=== PATIENT | female | born 1990 | race Caucasian/White ===

== ENCOUNTER 2016-07-03 11:34 | Emergency (ER) | payer BC ==
[2016-07-03] MEDS ORDERED: NS 0.9% 1000 ML* 2,000 ML IV ONE (13:28)
[2016-07-03 14:27] LABS: Albumin 3.6 g/dL (3.2-5.2); C Reactive Protein 23.67 mg/L (< 5.00); Calcium 9.2 mg/dL (8.6-10.3); EGFR African American 159.7 (>60); EGFR Non-African American 124.2 (>60); Globulin 3.1 g/dL (2-4); Potassium 3.7 mmol/L (3.5-5.0); Total Bilirubin 0.3 mg/dL (0.2-1.0); Total Protein 6.7 g/dL (6.4-8.9)
[2016-07-03 14:36] LABS: Urine Bacteria 1+ (Absent); Urine Bilirubin Negative (Negative); Urine Glucose Negative (Negative); Urine Nitrite Negative (Negative)
--- NOTE | 2016-07-03 15:15 | ED ---
I, Oh,Antonia, scribed for Denver Aguilera MD on 07/03/16 at 1320 . Abdominal Pain/Female - HPI Summary HPI Summary: This 26 y/o female presents to intermittent, diffuse abd pain and diarrhea since a week ago. Pt states that abd pain does not occur at daytime, but occurs at night and makes the sleep difficult "I am waking up every 2 hours". Pt initially dismissed abd pain as stomach bug, but decided to visit ED today when it became consistent after a week. Pt denies noting any blood in stool, but reports watery, dark stool. Tums did little to alleviate the pain. Negative fever, chills, or vaginal discharge. Positive n/v x1 a week ago. Pt denies any hx of colitis. FHx is positive for Crohn's to mother. She is currently 22 weeks . LMP on 02/02/2016. Pt is currently on fluoxetine. She reports "probiotic and clense" 2 months ago. - History of Current Complaint Chief Complaint: EDKarunauseaVomitDiarrh Stated Complaint: 22 WEEKS PREG, DIARRHEA NAUSEA Time Seen by Provider: 07/03/16 12:52 Hx Obtained From: Patient, Medical Records Hx Last Menstrual Period: 02/02/16 ?: No Onset/Duration: Resolved Timing: Hours Pain Intensity: 2 Pain Scale Used: 0-10 Numeric Location: Diffuse Radiates: No Character: Dull Aggravating Factor(s): Nothing Alleviating Factor(s): Spontaneous Resolution Associated Signs and Symptoms: Positive: Nausea, Vomiting, Diarrhea. Negative: Fever Allergies/Adverse Reactions: Allergies Allergy/AdvReac Type Severity Reaction Status Date / Time No Known Allergies Allergy Verified 07/03/16 11:35 PMH/Surg Hx/FS Hx/Imm Hx Endocrine/Hematology History: Denies: Hx Diabetes Cardiovascular History: Denies: Hx Congestive Heart Failure, Hx Hypertension History: Denies: Hx Renal Disease - Surgical History Surgery Procedure, Year, and Place: r acl reconstruction Infectious Disease History: No Infectious Disease History: Denies: Traveled Outside the [place] in Last 30 Days - Family History Known Family History: Positive: Respiratory Disease, Other - Crohn's to mother - Social History Alcohol Use: None Hx Substance Use: No Substance Use Type: Reports: None Hx Tobacco Use: Yes Smoking Status (MU): Former Smoker Type: Cigarettes Amount Used/How Often: 7 CIGARETTES Length of Time of Smoking/Using Tobacco: 1 YEARS Have You Smoked in the Last Year: Yes Review of Systems Negative: Fever Positive: Abdominal Pain - diffuse, intermittent, Vomiting, Diarrhea, Nausea Negative: dysuria, discharge Negative: Anxious, Depressed All Other Systems Reviewed And Are Negative: Yes Physical Exam Triage Information Reviewed: Yes Vital Signs On Initial Exam: Initial Vitals Temp Pulse Resp BP Pulse Ox 97.8 F 96 18 146/74 100 07/03/16 11:36 07/03/16 11:36 07/03/16 11:36 07/03/16 11:36 07/03/16 11:36 Vital Signs Reviewed: Yes Appearance: Positive: Well-Appearing, No Pain Distress Skin: Positive: Warm, Skin Color Reflects Adequate Perfusion, Dry Head/Face: Positive: Normal Head/Face Inspection Eyes: Positive: EOMI, ASTRID Neck: Positive: Supple, Nontender Respiratory/Lung Sounds: Positive: Clear to Auscultation, Breath Sounds Present Cardiovascular: Positive: RRR, Pulses are Symmetrical in both Upper and Lower Extremities Abdomen Description: Positive: Nontender, Soft Musculoskeletal: Positive: Strength/ROM Intact Neurological: Positive: Sensory/Motor Intact, Alert, Oriented to Person Place, Time Psychiatric: Positive: Affect/Mood Appropriate AVPU Assessment: Alert Diagnostics - Vital Signs Vital Signs Temp Pulse Resp BP Pulse Ox 07/03/16 11:36 97.8 F 96 18 146/74 100 - Laboratory Lab Results: Lab Results 07/03/16 07/03/16 07/03/16 Range/Units 13:55 13:55 13:55 INR (Anticoag Therapy) 0.86 L (0.89-1.11) APTT 27.1 (26.0-36.3) seconds Sodium 135 (133-145) mmol/L Potassium 3.7 (3.5-5.0) mmol/L Chloride 105 (101-111) mmol/L Carbon Dioxide 24 (22-32) mmol/L Anion Gap 6 (2-11) mmol/L BUN 13 (6-24) mg/dL Creatinine 0.59 (0.51-0.95) mg/dL Est GFR ( Amer) 159.7 (>60) Est GFR (Non-Af Amer) 124.2 (>60) BUN/Creatinine Ratio 22.0 H (8-20) Glucose 68 L (70-100) mg/dL Lactic Acid 0.8 (0.5-2.0) mmol/L Calcium 9.2 (8.6-10.3) mg/dL Total Bilirubin 0.30 (0.2-1.0) mg/dL AST 13 (13-39) U/L ALT 16 (7-52) U/L Alkaline Phosphatase 52 (34-104) U/L C-Reactive Protein 23.67 H (< 5.00) mg/L Total Protein 6.7 (6.4-8.9) g/dL Albumin 3.6 (3.2-5.2) g/dL Globulin 3.1 (2-4) g/dL Albumin/Globulin Ratio 1.2 (1-3) Lipase 54 (11.0-82.0) U/L Urine Color Urine Appearance Urine pH (5-9) Ur Specific Alexis (1.010-1.030) Urine Protein (Negative) Urine Ketones (Negative) Urine Blood (Negative) Urine Nitrate (Negative) Urine Bilirubin (Negative) Urine Urobilinogen (Negative) Ur Leukocyte Esterase (Negative) Urine WBC (Auto) (Absent) Urine RBC (Auto) (Absent) Ur Squamous Epith Cells (Absent) Urine Bacteria (Absent) Urine Glucose (Negative) 07/03/16 Range/Units 13:55 INR (Anticoag Therapy) (0.89-1.11) APTT (26.0-36.3) seconds Sodium (133-145) mmol/L Potassium (3.5-5.0) mmol/L Chloride (101-111) mmol/L Carbon Dioxide (22-32) mmol/L Anion Gap (2-11) mmol/L BUN (6-24) mg/dL Creatinine (0.51-0.95) mg/dL Est GFR ( Amer) (>60) Est GFR (Non-Af Amer) (>60) BUN/Creatinine Ratio (8-20) Glucose (70-100) mg/dL Lactic Acid (0.5-2.0) mmol/L Calcium (8.6-10.3) mg/dL Total Bilirubin (0.2-1.0) mg/dL AST (13-39) U/L ALT (7-52) U/L Alkaline Phosphatase (34-104) U/L C-Reactive Protein (< 5.00) mg/L Total Protein (6.4-8.9) g/dL Albumin (3.2-5.2) g/dL Globulin (2-4) g/dL Albumin/Globulin Ratio (1-3) Lipase (11.0-82.0) U/L Urine Color Yellow Urine Appearance Cloudy Urine pH 5.0 (5-9) Ur Specific Alexis 1.020 (1.010-1.030) Urine Protein Negative (Negative) Urine Ketones Negative (Negative) Urine Blood Negative (Negative) Urine Nitrate Negative (Negative) Urine Bilirubin Negative (Negative) Urine Urobilinogen Negative (Negative) Ur Leukocyte Esterase Trace H (Negative) Urine WBC (Auto) Trace(0-5/hpf) (Absent) Urine RBC (Auto) Trace(0-2/hpf) (Absent) Ur Squamous Epith Cells Present H (Absent) Urine Bacteria 1+ H (Absent) Urine Glucose Negative (Negative) Result Diagrams: 07/03/16 13:55 Lab Statement: Any lab studies that have been ordered have been reviewed, and results considered in the medical decision making process. Re-Evaluation - Re-Evaluation First Eval Re-Evaluation Time: 15:05 Comment: MD in room to update pt on bloodwork and UA results. Stool sample has not been obtained, and pt is currently requesting discharge. Plan of care involving discharge with stool sample kit to go and outpatient follow up with primary care provider. Abdominal Pain Fem Course/Dx - Course Course Of Treatment: WELL IN ED. UNABLE TO PROVIDE A STOOL SAMPLE IN ED. HOME WITH STOOL SAMPLE KIT TO F/U WITH OBGYN. RETURN IF WORSE. DISCHARGE HOME STABLE. - Diagnoses Provider Diagnoses: Diarrhea, Abdominal pain Discharge - Discharge Plan Condition: Stable Disposition: HOME Patient Education Materials: Acute Diarrhea (ED), Abdominal Pain (ED) Referrals: Non Staff,Doctor [Primary Care Provider] - Additional Instructions: FOLLOW UP WITH YOUR DOCTOR. BRING THE STOOL SAMPLES TO YOUR DOCTOR. RETURN TO THE EMERGENCY DEPARTMENT FOR ANY WORSENING OF YOUR CONDITION OR QUESTIONS OR CONCERNS. The documentation as recorded by the Danilo escobedo Soohyun accurately reflects the service I personally performed and the decisions made by me, Denver Aguilera MD.
[2016-07-03 15:17] VITALS: BP 133/73
[2016-07-03 15:35] LABS: Hemoglobin 12.4 g/dl (12.0-16.0); Mean Platelet Volume 9 um3 (7.4-10.4)
[2016-07-03 15:41] LABS: Hematocrit 37 % (35-47); Mean Corpuscular HGB Conc 33 g/dl (31-36); Mean Corpuscular Hemoglobin 31 pg (27-31); Mean Corpuscular Volume 92 fL (80-97); Red Blood Count 4.06 10^6/ul (4.0-5.4); Red Cell Distribution Width 13 % (10.5-15); White Blood Count 13.3 10^3/ul (3.5-10.8)
--- NOTE | 2016-07-06 08:51 | ED ---
Progress - Progress Note Progress Note: Pt's stool cx reveals (+) klebsiella oxytoca and lactoferrin - her note reports a 2 week h/o worsening diarrhea. Note does not indicate if pt has been on or is currently taking anbx but does note she did a "probiotic and cleanse" 2 months ago. Also, Mom w/ h/o Crohn's dz. Spoke w/ Dr. Piedra who recommends: 1) stopping anbx if she is taking them currently 2) if no anbx and diarrhea persists, may follow-up with him or her PCP to further investigate other causes as the body is colonized w/ kleb. oxytoca unless the yu is disturbed. LMTC. Will also mail letter if no call back by end of the day. екатерина Bautista aware. Re-Evaluation - Re-Evaluation First Eval Re-Evaluation Time: 15:05 Comment: in room to update pt on bloodwork and UA results. Stool sample has not been obtained, and pt is currently requesting discharge. Plan of care involving discharge with stool sample kit to go and outpatient follow up with primary care provider. Course/Dx - Course Course Of Treatment: WELL IN ED. UNABLE TO PROVIDE A STOOL SAMPLE IN ED. HOME WITH STOOL SAMPLE KIT TO F/U WITH OBGYN. RETURN IF WORSE. DISCHARGE HOME STABLE. - Diagnoses Provider Diagnoses: Diarrhea, Abdominal pain
== END 2016-07-03 15:18 | disposition home or self-care (01) ==
LOC: ED 11:34
DX: O26.892 Other specified pregnancy related conditions, second trimester (principal); Z3A.22 22 weeks gestation of pregnancy; R10.9 Unspecified abdominal pain; O99.332 Smoking (tobacco) complicating pregnancy, second trimester
CPT/HCPCS: 36415; 80053; 81003; 81015; 82272; 83605; 83630; 83690; 85025; 85610; 85730; 86140; 87045; 87046; 87077; 87086; 87328; 87329; 87493; 87899; 96360; 99283

== ENCOUNTER 2016-11-03 06:54 | Inpatient (IN) | payer BC ==
[2016-11-03] MEDS ORDERED: Oxytocin in LR* 20 UNITS/1,000 ML BAG IVPB SCH ×3 (08:45→17:50)
[2016-11-03 09:39] LABS: Hematocrit 36 % (35-47); Mean Corpuscular HGB Conc 34 g/dl (31-36); Mean Corpuscular Hemoglobin 31 pg (27-31); Mean Corpuscular Volume 91 fL (80-97); Mean Platelet Volume 8 um3 (7.4-10.4); Red Blood Count 3.94 10^6/ul (4.0-5.4); Red Cell Distribution Width 14 % (10.5-15); White Blood Count 11.2 10^3/ul (3.5-10.8)
[2016-11-03] MEDS ORDERED: Acetaminophen TAB* 325 MG PO PRN (13:00)
[2016-11-03] MEDS ORDERED: OBEPIDURAL* 250 ML ONE (13:34)
[2016-11-03] MEDS ORDERED: Famotidine TAB* 20 MG PO PRN (14:28)
[2016-11-03] MEDS ORDERED: Sodium Citrate/Citric Acid* 15 ML UDC PO PRN (14:28)
[2016-11-03] MEDS ORDERED: Phenylephrine IV* 40 MCG/ML 10 ML SYRINGE IV PUSH PRN (14:28)
[2016-11-03] MEDS ORDERED: OBEPIDURAL* 250 ML EPIDURAL SCH (15:00)
[2016-11-03] MEDS ORDERED: Glycerin ADULT SUPP PR PRN (16:32)
[2016-11-03] MEDS ORDERED: oxyCODONE/Acetamin 5/325 MG* TAB PO PRN (16:32)
[2016-11-03] MEDS ORDERED: Dibucaine 1% 28.35 GM TUBE PR PRN (16:32)
[2016-11-03] MEDS ORDERED: Witch Hazel PAD* JAR TOPICAL PRN (16:32)
[2016-11-03] MEDS ORDERED: Misoprostol TAB* 200 MCG PR ONE (17:18)
[2016-11-03] MEDS: Docusate CAP* 100 MG PO SCH (19:24)
[2016-11-03] MEDS: Ibuprofen TAB* 600 MG PO PRN (19:24)
[2016-11-04] MEDS: Ibuprofen TAB* 600 MG PO PRN ×3 (04:59→16:34)
[2016-11-04 06:48] LABS: Hematocrit 31 % (35-47); Hemoglobin 10.2 g/dl (12.0-16.0); Mean Corpuscular HGB Conc 33 g/dl (31-36); Mean Corpuscular Hemoglobin 30 pg (27-31); Mean Corpuscular Volume 91 fL (80-97); Mean Platelet Volume 8 um3 (7.4-10.4); Red Blood Count 3.34 10^6/ul (4.0-5.4); Red Cell Distribution Width 13 % (10.5-15); White Blood Count 13.2 10^3/ul (3.5-10.8)
[2016-11-04] MEDS: Simethicone CHEW TAB* 80 MG PO SCH (08:03)
[2016-11-04] MEDS ORDERED: Ferrous Gluconate TAB* 324 MG TAB PO SCH (09:00)
[2016-11-04] MEDS ORDERED: FLUoxetine CAP* 20 MG PO SCH (09:00)
[2016-11-04] MEDS ORDERED: Tetan/Diph/Pertus SYR(Tdap)* 0.5 ML SYR(BOOSTRIX) use SYR IM ONE (09:00)
[2016-11-04] MEDS: Docusate CAP* 100 MG PO SCH ×3 (09:07→21:35)
[2016-11-05] MEDS: Ibuprofen TAB* 600 MG PO PRN ×2 (01:05→11:54)
[2016-11-05 04:34] VITALS: BP 150/76
[2016-11-05] MEDS: Docusate CAP* 100 MG PO SCH (09:02)
== END 2016-11-05 12:36 | disposition home or self-care (01) | DRG 541 ==
LOC: MCHOBOUT 06:54 → MCHOB 07:53 → UNDOADMIN 07:53 → MCHOB 07:59
PROVIDERS: ADMIT Midwife; ATTEND Midwife
PROC: 10907ZC Drainage of Amniotic Fluid, Therapeutic from Products of Conception, Via Natural or Artificial Opening (ICD-10-PCS; principal; 2016-11-03)
PROC: 3E033VJ Introduction of Other Hormone into Peripheral Vein, Percutaneous Approach (ICD-10-PCS; 2016-11-03)
PROC: 10E0XZZ Delivery of Products of Conception, External Approach (ICD-10-PCS; 2016-11-03)
PROC: 4A1HXCZ Monitoring of Products of Conception, Cardiac Rate, External Approach (ICD-10-PCS; 2016-11-03)
PROC: 0KQM0ZZ Repair Perineum Muscle, Open Approach (ICD-10-PCS; 2016-11-03)
PROC: 10D17ZZ Extraction of Products of Conception, Retained, Via Natural or Artificial Opening (ICD-10-PCS; 2016-11-03)
DX: O99.344 Other mental disorders complicating childbirth (principal); O98.52 Other viral diseases complicating childbirth; O72.0 Third-stage hemorrhage; O99.824 Streptococcus B carrier state complicating childbirth; Z3A.39 39 weeks gestation of pregnancy; Z37.0 Single live birth; F32.9 Major depressive disorder, single episode, unspecified; O70.1 Second degree perineal laceration during delivery; F41.9 Anxiety disorder, unspecified; B00.9 Herpesviral infection, unspecified; R51 Headache; O75.89 Other specified complications of labor and delivery; O62.2 Other uterine inertia
CPT/HCPCS: 36415; 85025; 88307; 90715; A9270-GY

== ENCOUNTER 2016-12-16 06:13 | Day surgery (SDC) | payer BC, MEDICAID ==
[~2016-12-16 06:13] MED LIST: Buffered Lidocaine 0.9% SYRIN* 5 ML/SYR SYRINGE INTRADERM ONE; Buffered Lidocaine 0.9% SYRIN* 5 ML/SYR SYRINGE ONE; Famotidine IV* 10 MG/ML 2 ML (20 mg) IV ONE; Famotidine IV* 10 MG/ML 2 ML (20 mg) ONE; Morphine INJ* 2 MG/ML 1 ML SYRINGE IV PRN; PROCHLORPERAZINE INJ 5 MG/ML 2 ML VIAL IV PRN; Scopolamine 1.5 mg* PATCH TRANSDERM PRN; fentaNYL* 50 MCG/ML 2 ML VIAL (100 MCG VIAL) IV PRN; oxyCODONE/Acetamin 5/325 MG* TAB PO PRN
[2016-12-16] MEDS ORDERED: ceFAZolin 2 GM PREMIX (*) 100 ML IVPB ONE (07:00)
[2016-12-16] MEDS ORDERED: Bupivacaine 0.5% W/EPI SDV* 30 ML VIAL ONE (07:10)
[2016-12-16] MEDS ORDERED: KETAMINE HCL* 50 MG/ML 10 ML VIAL ONE (07:26)
[2016-12-16] MEDS ORDERED: fentaNYL* 50 MCG/ML 5 ML VIAL (250 MCG VIAL) ONE (07:26)
[2016-12-16] MEDS ORDERED: Atracurium* 10 MG/ML 10 ML VIAL ONE (07:26)
[2016-12-16] MEDS ORDERED: Midazolam* 1 MG/ML 5 ML VIAL (5 MG) ONE (07:26)
[2016-12-16] MEDS ORDERED: Dexamethasone IV* 4 MG/ML 1 ML (4 MG) ONE (08:39)
[2016-12-16] MEDS ORDERED: PROCHLORPERAZINE INJ 5 MG/ML 2 ML VIAL ONE (08:39)
[2016-12-16] MEDS ORDERED: Propofol* 10 MG/ML 20 ML BTL IV PUSH ONE (08:39)
[2016-12-16] MEDS ORDERED: EPHEDrine (Pressors)* 50 MG/ML VIAL ONE (08:39)
[2016-12-16] MEDS ORDERED: Ondansetron INJ* 2 MG/ML VIAL ONE (08:39)
[2016-12-16] MEDS ORDERED: Lidocaine 2% PF * 5 ML VIAL ONE (08:39)
[2016-12-16] MEDS ORDERED: Glycopyrrolate IV* 0.2 MG/ML 1 ML VIAL ONE (08:39)
[2016-12-16] MEDS ORDERED: Ketorolac INJ* 30 MG/ML 1 ML VIAL ONE (08:39)
[2016-12-16] MEDS ORDERED: Neostigmine Methylsulfate* 2 MG/2 ML SYRINGE ONE (08:39)
[2016-12-16] MEDS ORDERED: Ibuprofen TAB* 600 MG PO PRN (08:43)
[2016-12-16] MEDS ORDERED: fentaNYL* 50 MCG/ML 2 ML VIAL (100 MCG VIAL) ONE (09:06)
[2016-12-16] MEDS ORDERED: oxyCODONE/Acetamin 5/325 MG* TAB ONE (09:06)
[2016-12-16 10:14] VITALS: BP 134/79
--- NOTE | 2016-12-16 15:34 | OP ---
DATE OF OPERATION: 12/16/16 [facility] DATE OF : [birth year] SURGEON: Shoshana Green MD MANUFACTURING ENGINEER ASSEMBLY: Dr. Altamirano. ANESTHESIOLOGIST: Dr. Arnold. ANESTHESIA: General endotracheal anesthesia. PRE-OP DIAGNOSIS: Multiparity, desires permanent sterilization. POST-OP DIAGNOSIS: Multiparity, desires permanent sterilization. OPERATIVE PROCEDURE: Laparoscopic bilateral tubal cauterization. ESTIMATED BLOOD LOSS: Minimal, less than 20 cc. SPECIMEN: None. FLUIDS: Per Anesthesia. DRAINS: Lovelace catheter draining clear urine. FINDINGS: Small retroverted uterus. Normal-appearing fallopian tubes bilaterally. Normal-appearing ovaries bilaterally. COMPLICATIONS: None. COUNTS: Sponge, lap, and needle count were correct x2 and the patient was brought to recovery room awake and in stable condition. DESCRIPTION OF PROCEDURE: Patient was brought to the operating room. When general anesthesia was found to be adequate, the patient was prepped and draped in the usual sterile fashion in the dorsal supine position after a Lovelace catheter had been placed under sterile conditions. Time-out was performed. Marcaine was instilled in the infraumbilical fold. A 10-mm skin incision was made in the infraumbilical fold vertically. Using the S retractors and Sintia, the fascia was identified. The fascia was grasped between two Rosina clamps and incised with the scalpel. The Jovani was placed. The laparoscope was introduced. The abdomen was insufflated with CO2 gas. Marcaine was instilled 2 cm above the symphysis pubis. A 5-mm skin incision was made in the midline approximately 2 cm above the symphysis pubis. The 5-mm trocar and sleeve were advanced under direct visualization. The blunt probe was used to examine the pelvis, uterus, ovaries, and fallopian tubes. The Kleppinger was introduced. The left fallopian tube was followed out to the fimbriated end and cauterized in three separate locations. The patient's right fallopian tube was then followed out to the fimbriated end and cauterized in three separate locations. The 5-mm trocar and sleeve were removed under direct visualization. The Jovani was removed with the laparoscope in place. The fascia had been tagged upon entry with 0 Vicryl. The fascia was closed. No defect was palpated. The skin was closed with 4-0 Monocryl in a subcuticular fashion. Steri- Strips were applied. The patient tolerated the procedure well. Sponge, lap, and needle count were correct x2, and the patient was brought to recovery room awake and in stable condition after the Lovelace catheter had been removed and was noted to be draining clear urine. [id number]/[facility] #: [id number] MTDD
[2016-12-19] MEDS ORDERED: Scopolomine PATCH Remove* 1 NOTE MISC PATCH OFF ONE (05:53)
== END 2016-12-16 11:08 | disposition home or self-care (01) ==
LOC: OR 06:13
PROVIDERS: ATTEND Obstetrics & Gynecology
DX: Z30.2 Encounter for sterilization (principal)
CPT/HCPCS: A9270-GY; J0690; J0780; J1100; J1885; J2250; J2405; J2704; J3010

== ENCOUNTER 2017-03-29 10:30 | Day surgery (SDC) | payer BC ==
--- NOTE | 2017-03-10 08:18 | HP ---
HISTORY AND PHYSICAL: DATE OF SERVICE: 03/29/17 [facility] PROVIDER: Dr. Pratima Negron * (DICTATED BY CHLOE MARTINEZ) CHIEF COMPLAINT: Right wrist pain. HISTORY OF PRESENT ILLNESS: Millie Azul is a very pleasant 26-year-old female who is here for a followup evaluation of her right wrist. She had been seen a year ago for wrist pain and at that time could not really remember any specific injury. But as she is thinking back now, she thinks she may have fallen a couple of times on her right wrist. When she was seeing see was and declined an x-ray at that time. Her symptoms at that time were consistent with de Quervain's and she was diagnosed and treated with a cortisone injection at that time. She has now followed up with Dr. Roberts and works with him. He did an ultrasound. which showed a ganglion cyst and she was followed up with an MRI. 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 She is here today to discuss options for treatment. PAST MEDICAL HISTORY: Includes anxiety. PAST SURGICAL HISTORY: Tubal ligation in November of 2016. MEDICATIONS: Fluoxetine 40 mg daily. ALLERGIES: No known drug allergies. FAMILY HISTORY: Significant for mother with a pacemaker at the age of 40, hypertension, and hyperlipidemia. Father with a stroke at 50. All other medical history including diabetes was denied. SOCIAL HISTORY: The patient denies smoking. She endorses drinking about 5 drinks of alcohol weekly and denies illicit drug use. REVIEW OF SYSTEMS: General: She denies fevers, chills, or night sweats. She has not had problems with anesthesia in the past. HEENT: No headaches, lightheadedness, or syncopal events. Cardiothoracic: Negative for chest pain, heart palpitations, or edema. Pulmonary: Negative for shortness of breath with exertion, chronic cough, or asthma. GI: Negative for nausea, vomiting, diarrhea, constipation, or GERD. : Negative for urinary frequency, urgency, history of UTIs, or kidney problems. Musculoskeletal: Positive for those discussed in HPI and negative for any back pain or fractures. Neuro: She denies any numbness, paresthesias, seizures, or anxiety. Integumentary: She denies new lesions, rashes, or open sores. Endocrine: Negative for diabetes and thyroid problems. Hematologic: Negative for easy bruising, anemia, excessive bleeding, history of DVT, or PE. PHYSICAL EXAMINATION VITAL SIGNS: Height 69 inches weight 265 pounds, pulse 71, blood pressure 132/ 91, temperature 96.9, and BMI 39.1. GENERAL: This is a well-developed, well-nourished, very pleasant 26-year-old female in no acute distress. Alert and oriented x3 with no gross neurological deficiencies and ambulating without an limp. HEENT: Normocephalic and atraumatic. Pupils are equal, round, and reactive to light and accommodation. Extraocular movements intact. NECK: Supple. No palpable cervical lymph nodes. Thyroid is smooth and nontender. PULMONARY: Lungs clear to auscultation bilaterally with no wheezing or rhonchi. CARDIAC: Regular, rate, and rhythm. No murmurs, rubs, or gallops appreciated. No pedal edema. ABDOMEN: Soft and nontender. NEUROLOGIC: Sensation intact to light touch throughout. Cranial nerves II through XII grossly intact. MUSCULOSKELETAL: Her right wrist does not show any significant swelling. She has tenderness at the dorsal radiocarpal joint and snuff box. She can make a fist. Her wrist motion is good, but it is painful, especially at extremes. She does not have significant dorsal compartment tenderness, but she does have tenderness over a ganglion cyst of the volar radial aspect of her wrist. She had a negative Sharla's test. STUDIES: Her MRI was reviewed in the clinic today and it showed a nonunion proximal pole scaphoid fracture. New x-ray was obtained today that shows a fracture fragment to be a reasonable size for an attempted open reduction and internal fixation with bone grafting. She will likely also need a bone graft stimulator. She has a fracture gap of 3 mm of scaphoid nonunion. IMPRESSION: Right nonunion proximal pole scaphoid fracture. PLAN/RECOMMENDATIONS: Right wrist open reduction internal fixation of scaphoid , distal radius bone graft, ganglion cyst excision on 03/29/[address] Negron. The patient will return in 7 to 10 days postoperatively for suture removal and followup. Pain medication was not sent to the patient's pharmacy today. We have decided to send that near to surgery. PIERO MARKER, CHLOE [id number]/[facility] #: [id number] EVAN
[~2017-03-29 10:30] MED LIST changes: -Buffered Lidocaine 0.9% SYRIN* 5 ML/SYR SYRINGE ONE; -Famotidine IV* 10 MG/ML 2 ML (20 mg) IV ONE; -Famotidine IV* 10 MG/ML 2 ML (20 mg) ONE; -Morphine INJ* 2 MG/ML 1 ML SYRINGE IV PRN; -PROCHLORPERAZINE INJ 5 MG/ML 2 ML VIAL IV PRN; -Scopolamine 1.5 mg* PATCH TRANSDERM PRN; -fentaNYL* 50 MCG/ML 2 ML VIAL (100 MCG VIAL) IV PRN; -oxyCODONE/Acetamin 5/325 MG* TAB PO PRN
[2017-03-29] MEDS ORDERED: ceFAZolin 2 GM PREMIX (*) 2 GM/50 ML BAG IVPB ONE (11:10)
[2017-03-29] MEDS ORDERED: Bupivacaine 0.5% SDV PF* 30 ML VIAL ONE (12:41)
[2017-03-29] MEDS ORDERED: Lidocaine 2% PF * 5 ML VIAL ONE (13:26)
[2017-03-29] MEDS ORDERED: fentaNYL* 50 MCG/ML 2 ML VIAL (100 MCG VIAL) ONE (13:26)
[2017-03-29] MEDS ORDERED: Propofol* 10 MG/ML 20 ML BTL IV PUSH ONE (13:26)
[2017-03-29] MEDS ORDERED: ROPIVACAINE 5 MG/ML 30 ML BTL (0.5%) ONE (13:31)
[2017-03-29] MEDS ORDERED: Tropicamide 1% OPTH.SOL* BTL ONE (14:19)
[2017-03-29] MEDS ORDERED: Lidocaine 1% MPF* 2 ML VIAL ONE (14:19)
[2017-03-29] MEDS ORDERED: Tetracaine 0.5% OPTH.SOL 4 ML* 1 DROP BTL ONE (14:19)
[2017-03-29] MEDS ORDERED: Neomycin/Polymy/Dex OPHTH.OIN* 3.5 GM ONE (14:19)
[2017-03-29] MEDS ORDERED: Phenylephrine 2.5% OPTH.SOL* 2 ML BTL ONE (14:19)
[2017-03-29] MEDS ORDERED: Cyclopentolate 1% OPTH.SOL* 2 ML BTL ONE (14:19)
[2017-03-29] MEDS ORDERED: Ketorolac 0.5% OPHTH (NF) 0.5 % 5 ML BTL ONE (14:19)
[2017-03-29] MEDS ORDERED: fentaNYL* 50 MCG/ML 2 ML VIAL (100 MCG VIAL) IV PRN (14:40)
[2017-03-29] MEDS ORDERED: Ketorolac INJ* 30 MG/ML 1 ML VIAL IV PRN (14:40)
[2017-03-29] MEDS ORDERED: DiMENhydriNATE IV* 50 MG/ML VIAL IV PUSH PRN (14:40)
[2017-03-29] MEDS ORDERED: Dexamethasone IV* 4 MG/ML 1 ML (4 MG) ONE (14:46)
[2017-03-29] MEDS ORDERED: Gelfoam 12-7 ADSORBABL SPONGE* 1 EA SPONGE ONE (14:59)
[2017-03-29 16:31] VITALS: BP 138/80
--- NOTE | 2017-03-30 03:35 | OP ---
DATE OF OPERATION: 03/29/17 - [facility] DATE OF : [birth year] SURGEON: Pratima Negron MD PARALEGAL ASSISTANT: CLHOE Marcial ANESTHESIA: General and axillary block. 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 POST-OP DIAGNOSES: Scaphoid nonunion on the right and ganglion cyst on the right wrist. OPERATIVE PROCEDURE: Right wrist ganglion cyst excision and open reduction internal fixation of the right scaphoid with distal radius bone graft. ESTIMATED BLOOD LOSS: Zero. TOURNIQUET TIME: About an hour. INDICATION FOR PROCEDURE: Millie is a 26-year-old female who has had wrist pain for over a year. Recent x-ray and MRI show a nonunion of the scaphoid proximal pole as well as a ganglion cyst on the volar radial aspect of the wrist, both are bothersome. She presents for removal of the ganglion cyst and open reduction and internal fixation of the right scaphoid. DESCRIPTION OF PROCEDURE: The patient was brought to the operating room, was given a general anesthetic. After an axillary block anesthetic, the skin of her right upper extremity was prepped and draped in the usual sterile fashion. The upper extremity was exsanguinated and the tourniquet elevated to 250 mmHg. A Chevron incision was made centered over the palpable wrist mass and dissected bluntly through the subcutaneous tissue. The radial artery was retracted and the ganglion cyst which was emanating from the radiocarpal joint was removed with a small portion of the radiocarpal joint. The edges of the capsule of the joint were cauterized with a Bovie. The wound was irrigated and the skin edges were reapproximated with 4-0 nylon suture. Next, a longitudinal incision was made on the dorsal aspect of the wrist just ulnar to Adenike's tubercle. The third extensor compartment was opened and the EPL tendon was retracted radially. The wrist joint capsule was incised longitudinally and subperiosteally dissected off of the distal radius. There was a nonunion of the proximal pole of the scaphoid. The fracture fragments were debrided with a curette and then Adenike's tubercles were removed with a rongeur and cancellous bone graft was obtained with a curette. The bone graft was packed in the defect and then a guidewire from the standard AcDAVIDsTEAak set was driven across the proximal fragment and into the distal fragment. A second guidewire was driven across the 2 fragments to secure them well. The first guidewire was over drilled with the standard Acutrak drill. A 22-mm screw was placed across the fracture fragments and gave good compression. The position of the hardware and fracture fragments were checked on in the AP and lateral views on the C-arm after the guidewires were removed and was found to be satisfactory. The wound was irrigated. The wrist capsule was closed with 2-0 Polysorb suture. Gelfoam was packed in the bone graft harvest site. The extensor retinaculum was repaired with 2-0 Polysorb suture and the skin edges were reapproximated with 4- 0 nylon suture. The wound was dressed with Xeroform, 4x4, Webril and a sugar- tong splint with thumb spica. The patient tolerated the procedure well and was brought to the recovery room in good condition after awakening from general anesthesia. [id number]/[facility] #: [id number] EVAN
--- NOTE | 2017-03-31 07:26 | RAD ---
INDICATION: Operative reduction internal fixation of traumatic scaphoid fracture right wrist. COMPARISON: Comparison is made with a prior x-ray study of the right wrist from March 09, 2017. TECHNIQUE: 0.58 seconds of intermittent fluoroscopic guidance were provided and 11 spot films of the left wrist were obtained in the operating room. FINDINGS: The films demonstrate a defect in the distal radius consistent with a harvest site for bone graft material. There is placement of a surgical screw spanning the transverse fracture of the proximal portion of the scaphoid bone. IMPRESSION: INTRAOPERATIVE CONTROL FILMS. CPT II Codes: 6045F
== END 2017-03-29 16:44 | disposition home or self-care (01) ==
LOC: OREAST 10:30
PROVIDERS: ATTEND Orthopaedic Surgery
DX: S62.031K Displaced fracture of proximal third of navicular [scaphoid] bone of right wrist, subsequent encounter for fracture with nonunion (principal); M67.431 Ganglion, right wrist; W19.XXXD Unspecified fall, subsequent encounter; Y92.9 Unspecified place or not applicable; G89.18 Other acute postprocedural pain; F41.9 Anxiety disorder, unspecified
CPT/HCPCS: 76000; 81025; 88304; A9270-GY; C1713; C1776; J0690; J1100; J2704; J2795; J3010

== ENCOUNTER 2017-08-23 07:09 | Emergency (ER) | payer BC ==
[2017-08-23 07:27] VITALS: BP 133/92
--- NOTE | 2017-08-23 07:56 | UC ---
Throat Pain/Nasal Gasper HPI - HPI Summary HPI Summary: PATIENT PRESENTS WITH 2 WEEKS OF SIGNIFICANT FATIGUE. 4 DAYS AGO DEVELOPED SORE THROAT, HEADACHE AND MILD COUGH. STATES SHE HAD A SWOLLEN LYMPH NODE IN HER LEFT ARMPIT THAT IS NOW RESOLVING. SHE DENIES FEVER. SHE IS CONCERNED ABOUT MONO AND WOULD LIKE SOME LAB WORK DONE TODAY. SHE ATTEMPTED TO GET IN WITH HER PCP BUT WAS UNABLE TO SCHEDULE APPOINTMENT FOR 2 WEEKS. - History of Current Complaint Chief Complaint: UCGeneralIllness Stated Complaint: SORE THROAT, HEADACHE Time Seen by Provider: 08/23/17 07:48 Hx Obtained From: Patient Hx Last Menstrual Period: 07/23/17 Onset/Duration: Gradual Onset, Lasting Weeks, Still Present Severity: Moderate Pain Intensity: 0 Pain Scale Used: 0-10 Numeric Cough: Nonproductive Associated Signs & Symptoms: Negative: Fever - Allergies/Home Medications Allergies/Adverse Reactions: Allergies Allergy/AdvReac Type Severity Reaction Status Date / Time No Known Allergies Allergy Verified 08/23/17 07:16 Home Medications: Home Medications FLUoxetine CAP* [PROzac CAP*] 20 mg PO DAILY 08/23/17 [History Confirmed ] buPROPion TAB* [Wellbutrin TAB*] 150 mg PO DAILY 08/23/17 [History Confirmed ] PMH/Surg Hx/FS Hx/Imm Hx Psychological History: Depression - Surgical History Surgical History: Yes Surgery Procedure, Year, and Place: right acl reconstruction, 2007, [facility]. R wrist surgery 2017. TUBAL LIGATION - Family History Known Family History: Positive: Hypertension, Respiratory Disease, Other - Crohn 's to mother - Social History Alcohol Use: Occasionally Alcohol Amount: 5 per week Substance Use Type: None Smoking Status (MU): Never Smoked Tobacco Type: Cigarettes Amount Used/How Often: 7 CIGARETTES Length of Time of Smoking/Using Tobacco: 1 YEAR Have You Smoked in the Last Year: Yes When Did the Patient Quit Smoking/Using Tobacco: When - Immunization History Most Recent Influenza Vaccination: 04/16 Most Recent Tetanus Shot: 04/2011 Most Recent Pneumonia Vaccination: none Review of Systems Constitutional: Fatigue ENT: Sore Throat Respiratory: Cough Cardiovascular: Negative Gastrointestinal: Negative Neurological: Headache All Other Systems Reviewed And Are Negative: Yes Physical Exam Triage Information Reviewed: Yes Appearance: Well-Appearing, No Pain Distress, Well-Nourished Vital Signs: Initial Vital Signs Temp 97.9 F 08/23/17 07:18 Pulse 87 08/23/17 07:18 Resp 18 08/23/17 07:18 BP 133/92 08/23/17 07:18 Pulse Ox 98 08/23/17 07:18 Vital Signs Reviewed: Yes Eyes: Positive: Conjunctiva Clear ENT: Positive: Hearing grossly normal, Pharynx normal, TMs normal. Negative: Tonsillar swelling, Tonsillar exudate, Hoarse voice Neck: Positive: Supple, Nontender, No Lymphadenopathy Respiratory Exam: Normal Cardiovascular Exam: Normal Abdomen Description: Positive: Soft Musculoskeletal: Positive: No Edema Neurological: Positive: Alert Psychological: Positive: Age Appropriate Behavior Skin: Negative: rashes Throat Pain/Nasal Course/Dx - Differential Dx/Diagnosis Provider Diagnoses: ACUTE VIRAL SYNDROME/FATIGUE Discharge - Sign-Out/Discharge Documenting (check all that apply): Discharge/Admit/Transfer - Discharge Plan Condition: Stable Disposition: HOME Patient Education Materials: Viral Syndrome (ED), Fatigue (ED) Referrals: Candy Weeks, AUDIT CLERKS SUPERVISOR [Primary Care Provider] - If Needed Additional Instructions: YOUR SYMPTOMS ARE LIKELY VIRALLY MEDIATED AND SHOULD RESOLVE ON THEIR OWN WITH TIME. NO INDICATION FOR ANTIBIOTICS AT PRESENT. REST, HYDRATE, OTC MEDS NEEDED. SEEK FOLLOW-UP IF YOU ARE NOT IMPROVING OVER THE NEXT 1-2 WEEKS. GIVEN YOUR CONCERN FOR MONO AND YOUR FATIGUE OVER THE PAST COUPLE OF WEEKS WILL CHECK BLOOD COUNT, METABOLIC PANEL, THYROID AND MONO. FOLLOW THESE RESULTS WITH YOUR PCP. - Billing Disposition and Condition Condition: STABLE Disposition: HOME
[2017-08-23 10:21] LABS: ABS Basophils 0 10^3/ul (0-0.2); ABS Eosinophils 0.1 10^3/ul (0-0.6); ABS Lymphocytes 1.2 10^3/ul (1.0-4.8); ABS Monocytes 0.4 10^3/ul (0-0.8); ABS Neutrophils 6.1 10^3/ul (1.5-7.7); ABS Nucleated RBC 0 10^3/ul; Eosinophil % 0.8 % (0-6); Hematocrit 40 % (35-47); Hemoglobin 13.8 g/dl (12.0-16.0); Lymphocyte % 15.8 % (25-47); Mean Corpuscular HGB Conc 34 g/dl (31-36); Mean Corpuscular Hemoglobin 31 pg (27-31); Mean Corpuscular Volume 90 fL (80-97); Mean Platelet Volume 8.2 um3 (7.4-10.4); Nucleated Red Blood Cells % 0; Platelet Count 306 10^3/ul (150-450); Red Blood Count 4.48 10^6/ul (4.0-5.4); Red Cell Distribution Width 14 % (10.5-15); White Blood Count 7.9 10^3/ul (3.5-10.8)
[2017-08-23 10:37] LABS: EGFR Non-African American 77.7 (>60)
== END 2017-08-23 08:05 | disposition home or self-care (01) ==
LOC: UCEAST 07:09
DX: B34.9 Viral infection, unspecified (principal); R53.83 Other fatigue; F32.9 Major depressive disorder, single episode, unspecified; Z72.0 Tobacco use
CPT/HCPCS: 36415; 80053; 84443; 85025; 86308; 99211; G0463

== ENCOUNTER 2021-07-18 22:18 | Inpatient (IN) ==
[2021-07-18] MEDS ORDERED: Pantoprazole VIAL 40 MG VIAL IV ONE (22:40)
[2021-07-18] MEDS ORDERED: Thiamine 100 MG/ML 2 ml VIAL 100 MG, Folic Acid IV 1 MG, Multiple Vitamin IV ADULT 10 M... IV ONE (23:00)
[2021-07-18 23:39] LABS: ABS Basophils 0.1 10^3/ul (0-0.2); ABS Eosinophils 0.1 10^3/ul (0-0.6); ABS Monocytes 0.6 10^3/ul (0-0.8); ABS Neutrophils 17.1 10^3/ul (1.5-7.7); Eosinophil % 0.3 %; Hematocrit 43 % (35-47); Hemoglobin 14.8 g/dL (12.0-16.0); Lymphocyte % 5.4 %; Mean Corpuscular HGB Conc 34 g/dL (31-36); Mean Corpuscular Hemoglobin 32 pg (27-31); Mean Corpuscular Volume 92 fL (80-97); Mean Platelet Volume 7.4 fL (7.4-10.4); Nucleated Red Blood Cells % 0.1; Platelet Count 371 10^3/uL (150-450); Red Blood Count 4.69 10^6 /uL (3.70-4.87); Red Cell Distribution Width 12 % (10-15); White Blood Count 18.9 10^3/uL (3.5-10.8)
[2021-07-19 00:28] LABS: HCG Pregnancy < 0.60 mIU/mL
[2021-07-19] MEDS: Morphine 4 MG/ML VIAL (1 ml) IV ONE (00:28)
[2021-07-19 00:38] LABS: ALT 17 U/L (7-52); AST 22 U/L (13-39); Albumin 4.2 g/dL (3.2-5.2); Albumin/Globulin Ratio 1.8 (1-3); Alkaline Phosphatase 53 U/L (35-149); Anion Gap 11 mmol/L (2-11); Blood Urea Nitrogen 5 mg/dL (6-24); C Reactive Protein 1.01 mg/L (<8.01); CO2 Carbon Dioxide 25 mmol/L (22-32); Calcium 9.1 mg/dL (8.6-10.3); Chloride 107 mmol/L (101-111); Globulin 2.3 g/dL (2-4); Glucose 89 mg/dL (70-100); Lipase 24 U/L (11.0-82.0); Potassium 3.8 mmol/L (3.5-5.0); Sodium 143 mmol/L (135-145); Total Protein 6.5 g/dL (6.4-8.9); eGFR CKD-EPI 115.3 (>60)
[2021-07-19] MEDS ORDERED: Iohexol 300 (CONTRAST) 10 ML SDV IV ONE (01:02)
[2021-07-19] MEDS ORDERED: Piperacillin/Tazobac ADVAN 3.375 GM in NS 0.9% 100 ml BAG 100 ML IV ONE (01:58)
[2021-07-19] MEDS ORDERED: Etomidate 20 mg/10 ml 2 MG/ML 10 ml VIAL ONE (03:54)
[2021-07-19] MEDS ORDERED: Succinylcholine 200 mg VIAL 20 mg/ml 10 ml VIAL (200 mg) ONE (03:54)
[2021-07-19] MEDS ORDERED: fentaNYL 100 mcg/2 ml 50 MCG/ML VIAL ONE ×2 (03:56→07:01)
[2021-07-19] MEDS ORDERED: Midazolam 2 mg/2 ml VIAL 1 mg/ml 2 ml VIAL (2 mg) ONE (03:56)
[2021-07-19] MEDS ORDERED: Famotidine IV 10 MG/ML 2 ml VIAL (20 mg) ONE (04:28)
[2021-07-19] MEDS ORDERED: Propofol 0 MG/0 ML BTL ONE (04:42)
[2021-07-19] MEDS ORDERED: Propofol 10 MG/ML 20 ML BTL ONE (04:42)
[2021-07-19] MEDS ORDERED: Bupivacaine 0.25% SDV 30 ML ONE (05:11)
[2021-07-19] MEDS ORDERED: Bupivacaine 0.25% EPI 200,000 30 ML SDV ONE (05:12)
[2021-07-19] MEDS ORDERED: Rocuronium 50 mg VIAL 10 mg/ml 5 ml VIAL (50 mg) ONE (05:27)
[2021-07-19] MEDS ORDERED: Piperacillin/Tazobac 3.375 GM BAG ONE (06:39)
[2021-07-19] MEDS ORDERED: Naloxone 0.4 mg VIAL 0.4 mg/ml 1 ml VIAL IV PRN (07:52)
[2021-07-19] MEDS ORDERED: DiMENhydriNATE IV 50 mg/ml 1 ml VIAL IV PUSH PRN (07:52)
[2021-07-19] MEDS ORDERED: Acetaminophen IV 1 GM/100ML 100 ML IV ONE ×2 (07:52→08:43)
[2021-07-19] MEDS ORDERED: Labetalol IV 5 MG/ML 20 ml VIAL IV PUSH ONE (08:06)
[2021-07-19] MEDS ORDERED: Labetalol IV 5 MG/ML 20 ml VIAL ONE (08:08)
[2021-07-19] MEDS ORDERED: HYDROmorphone 1 MG/1 ML SYRINGE ONE (08:43)
[2021-07-19] MEDS: HYDROmorphone 1 MG/1 ML SYRINGE IV PRN ×2 (08:45→09:11)
[2021-07-19] MEDS: NS 0.9% 1000 ml BAG 1,000 ML IV SCH ×2 (10:30→19:01)
[2021-07-19] MEDS ORDERED: Piperacillin/Tazobactam VIAL 3.375 GM in NS 0.9% 100 ml BAG 100 ML IVPB SCH (10:30)
[2021-07-19] MEDS: Pantoprazole 80 mg in NS BAG 80 MG/250 ML BAG IV SCH ×2 (10:42→22:05)
[2021-07-19] MEDS: Nicotine PATCH 21 MG/24 HR PATCH TRANSDERM SCH (13:59)
[2021-07-19] MEDS: HYDROmorphone 0.5 MG/0.5 ML SYRINGE IV SLOW PU PRN ×3 (14:06→21:16)
[2021-07-19] MEDS: Ondansetron 4 mg VIAL 2 MG/ML 2 ml VIAL IV PRN (21:22)
[2021-07-19] MEDS: Piperacillin/Tazobactam VIAL 3.375 GM in NS 0.9% 100 ml BAG 100 ML IVPB SCH (23:16)
[2021-07-20] MEDS: NS 0.9% 1000 ml BAG 1,000 ML IV SCH ×3 (01:44→17:31)
[2021-07-20] MEDS: HYDROmorphone 0.5 MG/0.5 ML SYRINGE IV SLOW PU PRN ×5 (02:03→23:16)
[2021-07-20] MEDS: Ondansetron 4 mg VIAL 2 MG/ML 2 ml VIAL IV PRN ×5 (02:12→23:19)
[2021-07-20] MEDS: Piperacillin/Tazobactam VIAL 3.375 GM in NS 0.9% 100 ml BAG 100 ML IVPB SCH ×3 (05:58→21:36)
[2021-07-20 06:08] LABS: ABS Lymphocytes 1.4 10^3/ul (1.0-4.8); ABS Monocytes 0.6 10^3/ul (0-0.8); ABS Neutrophils 6.6 10^3/ul (1.5-7.7); Eosinophil % 0.2 %; Hematocrit 33 % (35-47); Hemoglobin 11.3 g/dL (12.0-16.0); Lymphocyte % 16.2 %; Mean Corpuscular HGB Conc 35 g/dL (31-36); Mean Corpuscular Hemoglobin 32 pg (27-31); Mean Corpuscular Volume 93 fL (80-97); Mean Platelet Volume 7.8 fL (7.4-10.4); Platelet Count 221 10^3/uL (150-450); Red Blood Count 3.49 10^6 /uL (3.70-4.87); Red Cell Distribution Width 12 % (10-15); White Blood Count 8.6 10^3/uL (3.5-10.8)
[2021-07-20 06:57] LABS: Calcium 7.8 mg/dL (8.6-10.3); Potassium 3.6 mmol/L (3.5-5.0); eGFR CKD-EPI 119.7 (>60)
[2021-07-20] MEDS: Pantoprazole 80 mg in NS BAG 80 MG/250 ML BAG IV SCH ×2 (09:11→21:28)
[2021-07-20] MEDS: Nicotine PATCH 21 MG/24 HR PATCH TRANSDERM SCH (09:33)
[2021-07-21] MEDS: NS 0.9% 1000 ml BAG 1,000 ML IV SCH (01:34)
[2021-07-21] MEDS: Ondansetron 4 mg VIAL 2 MG/ML 2 ml VIAL IV PRN ×2 (03:25→07:57)
[2021-07-21] MEDS: HYDROmorphone 0.5 MG/0.5 ML SYRINGE IV SLOW PU PRN (03:25)
[2021-07-21] MEDS: Piperacillin/Tazobactam VIAL 3.375 GM in NS 0.9% 100 ml BAG 100 ML IVPB SCH ×3 (05:42→22:18)
[2021-07-21] MEDS ORDERED: Morphine 4 MG/ML VIAL (1 ml) ONE (07:43)
[2021-07-21] MEDS: Pantoprazole 80 mg in NS BAG 80 MG/250 ML BAG IV SCH ×3 (07:47→21:08)
[2021-07-21] MEDS: Morphine 4 MG/ML VIAL (1 ml) IV ONE (07:56)
[2021-07-21] MEDS: Nicotine PATCH 21 MG/24 HR PATCH TRANSDERM SCH (07:57)
[2021-07-21] MEDS ORDERED: NS 0.9% 1000 ml BAG 1,000 ML IV SCH (10:22)
[2021-07-21] MEDS: Morphine 4 MG/ML VIAL (1 ml) IV PRN ×3 (12:53→22:18)
[2021-07-22] MEDS: NS 0.9% 1000 ml BAG 1,000 ML IV SCH (01:52)
[2021-07-22] MEDS: Morphine 4 MG/ML VIAL (1 ml) IV PRN ×5 (02:35→21:47)
[2021-07-22] MEDS: Piperacillin/Tazobactam VIAL 3.375 GM in NS 0.9% 100 ml BAG 100 ML IVPB SCH ×3 (05:32→21:51)
[2021-07-22] MEDS: Pantoprazole 80 mg in NS BAG 80 MG/250 ML BAG IV SCH ×2 (09:18→21:19)
[2021-07-22] MEDS: Nicotine PATCH 21 MG/24 HR PATCH TRANSDERM SCH (09:54)
[2021-07-22] MEDS: Ondansetron 4 mg VIAL 2 MG/ML 2 ml VIAL IV PRN (11:00)
[2021-07-22 15:08] LABS: ABS Eosinophils 0.1 10^3/ul (0-0.6); ABS Lymphocytes 0.8 10^3/ul (1.0-4.8); ABS Monocytes 0.5 10^3/ul (0-0.8); ABS Neutrophils 5.5 10^3/ul (1.5-7.7); Eosinophil % 1.1 %; Hematocrit 34 % (35-47); Hemoglobin 11.9 g/dL (12.0-16.0); Lymphocyte % 11.2 %; Mean Corpuscular HGB Conc 35 g/dL (31-36); Mean Corpuscular Hemoglobin 33 pg (27-31); Mean Corpuscular Volume 93 fL (80-97); Platelet Count 250 10^3/uL (150-450); Red Blood Count 3.65 10^6 /uL (3.70-4.87); Red Cell Distribution Width 12 % (10-15); White Blood Count 6.9 10^3/uL (3.5-10.8)
[2021-07-22 15:29] LABS: Potassium 4.2 mmol/L (3.5-5.0); eGFR CKD-EPI 122.3 (>60)
[2021-07-23] MEDS: NS 0.9% 1000 ml BAG 1,000 ML IV SCH (01:01)
[2021-07-23] MEDS: Morphine 4 MG/ML VIAL (1 ml) IV PRN ×2 (02:02→06:26)
[2021-07-23] MEDS: Piperacillin/Tazobactam VIAL 3.375 GM in NS 0.9% 100 ml BAG 100 ML IVPB SCH ×2 (07:04→14:53)
[2021-07-23] MEDS: Pantoprazole 80 mg in NS BAG 80 MG/250 ML BAG IV SCH (08:47)
[2021-07-23] MEDS: Nicotine PATCH 21 MG/24 HR PATCH TRANSDERM SCH (11:07)
[2021-07-23] MEDS: HYDROcodone/ACET. 7.5/325 LIQ 15 ML UDC PO PRN ×3 (11:09→20:42)
[2021-07-24] MEDS: Piperacillin/Tazobactam VIAL 3.375 GM in NS 0.9% 100 ml BAG 100 ML IVPB SCH ×2 (00:27→05:33)
[2021-07-24] MEDS: HYDROcodone/ACET. 7.5/325 LIQ 15 ML UDC PO PRN ×2 (00:38→09:08)
[2021-07-24] MEDS: Nicotine PATCH 21 MG/24 HR PATCH TRANSDERM SCH (09:08)
[2021-07-24] MEDS: Pantoprazole 80 mg in NS BAG 80 MG/250 ML BAG IV SCH (09:29)
[2021-07-24 10:45] VITALS: BP 142/95
== END 2021-07-24 12:45 | disposition home or self-care (01) | DRG 223 ==
LOC: ED 22:18 → OR 07-19 03:59 → SSU 07-19 10:06
PROVIDERS: ADMIT Surgery; ATTEND Surgery

== ENCOUNTER 2021-08-26 10:42 | Inpatient (IN) ==
[2021-08-26] MEDS ORDERED: NS 0.9% 1000 ml BAG 1,000 ML IV ONE (12:03)
[2021-08-26] MEDS ORDERED: Morphine 4 MG/ML VIAL (1 ml) IV ONE (12:03)
[2021-08-26] MEDS ORDERED: Ondansetron 4 mg VIAL 2 MG/ML 2 ml VIAL IV ONE (12:04)
[2021-08-26] MEDS ORDERED: Ondansetron 4 mg VIAL 2 MG/ML 2 ml VIAL IV PRN (12:42)
[2021-08-26] MEDS ORDERED: HYDROmorphone 1 MG/1 ML SYRINGE IV SLOW PU PRN (12:42)
[2021-08-26] MEDS ORDERED: metroNIDAZOLE IV 500 MG/100ML - ED ONCE IVPB ONE (13:00)
[2021-08-26] MEDS ORDERED: Lactated Ringers 1000 ml BAG 1,000 ML IV SCH ×4 (13:00→23:10)
[2021-08-26 13:46] LABS: ABS Lymphocytes 1.2 10^3/ul (1.0-4.8); ABS Monocytes 0.5 10^3/ul (0-0.8); ABS Neutrophils 9.2 10^3/ul (1.5-7.7); Eosinophil % 0.3 %; Hematocrit 48 % (35-47); Hemoglobin 16.4 g/dL (12.0-16.0); Lymphocyte % 10.6 %; Mean Corpuscular HGB Conc 35 g/dL (31-36); Mean Corpuscular Hemoglobin 32 pg (27-31); Mean Corpuscular Volume 91 fL (80-97); Mean Platelet Volume 7.4 fL (7.4-10.4); Platelet Count 287 10^3/uL (150-450); Red Cell Distribution Width 13 % (10-15)
[2021-08-26 14:21] LABS: Calcium 9.5 mg/dL (8.6-10.3); Potassium 4.2 mmol/L (3.5-5.0); eGFR CKD-EPI 111.6 (>60)
[2021-08-26] MEDS ORDERED: Lidocaine 1% w EPI 1:100,000 MDV 20 ML VIAL ONE (15:04)
[2021-08-26] MEDS ORDERED: Bupivacaine 0.5% 50 ML MDV VIAL ONE (15:04)
[2021-08-26] MEDS ORDERED: fentaNYL 100 mcg/2 ml 50 MCG/ML VIAL ONE ×3 (15:05→16:48)
[2021-08-26] MEDS ORDERED: Lidocaine 2% PF 5 ML VIAL ONE (15:05)
[2021-08-26] MEDS ORDERED: Ondansetron 4 mg VIAL 2 MG/ML 2 ml VIAL ONE (15:05)
[2021-08-26] MEDS ORDERED: Propofol 10 MG/ML 20 ML BTL ONE (15:05)
[2021-08-26] MEDS ORDERED: Midazolam 2 mg/2 ml VIAL 1 mg/ml 2 ml VIAL (2 mg) ONE (15:05)
[2021-08-26] MEDS ORDERED: Dexamethasone IV 4 MG/ML VIAL 1 ml VIAL ONE (15:05)
[2021-08-26] MEDS ORDERED: Famotidine IV 10 MG/ML 2 ml VIAL (20 mg) IV ONE (15:20)
[2021-08-26] MEDS ORDERED: DiMENhydriNATE IV 50 mg/ml 1 ml VIAL IV PUSH ONE (15:20)
[2021-08-26] MEDS ORDERED: Buffered Lidocaine 1% SYRIN 1 ml INTRADERM ONE (15:20)
[2021-08-26] MEDS ORDERED: Morphine 4 MG/ML VIAL (1 ml) IV PRN (15:21)
[2021-08-26] MEDS ORDERED: fentaNYL 100 mcg/2 ml 50 MCG/ML VIAL IV PRN (15:21)
[2021-08-26] MEDS ORDERED: Naloxone 0.4 mg VIAL 0.4 mg/ml 1 ml VIAL IV PRN (15:21)
[2021-08-26] MEDS ORDERED: Prochlorperazine 5 mg/ml 2 ml VIAL (10 mg) IV PRN (15:21)
[2021-08-26] MEDS ORDERED: HYDROcodone/ACETAMIN 5/325 mg TAB PO PRN (15:21)
[2021-08-26] MEDS ORDERED: DiMENhydriNATE IV 50 mg/ml 1 ml VIAL ONE (15:24)
[2021-08-26] MEDS ORDERED: Famotidine IV 10 MG/ML 2 ml VIAL (20 mg) ONE (15:24)
[2021-08-26] MEDS ORDERED: Succinylcholine 200 mg VIAL 20 mg/ml 10 ml VIAL (200 mg) ONE (15:40)
[2021-08-26] MEDS ORDERED: Acetaminophen IV 1 GM/100ML 100 ML IV ONE (16:40)
[2021-08-26] MEDS ORDERED: Phenylephrine IV 10 MG/ML 1 ml VIAL ONE (17:02)
[2021-08-26] MEDS ORDERED: EPHEDrine (Pressors) 50 MG/ML VIAL ONE (17:27)
[2021-08-26] MEDS ORDERED: oxyCODONE/Acetamin 5/325 mg TAB ONE (18:45)
[2021-08-26] MEDS: oxyCODONE/Acetamin 5/325 mg TAB PO PRN ×2 (18:45→18:46)
[2021-08-26] MEDS ORDERED: oxyCODONE/Acetamin 5/325 mg TAB PO PRN (19:48)
[2021-08-26] MEDS ORDERED: metroNIDAZOLE IV 500 MG/100ML 100 ML IVPB SCH (22:00)
[2021-08-27 00:03] LABS: Hematocrit 42 % (35-47); Hemoglobin 14.7 g/dL (12.0-16.0); Mean Corpuscular HGB Conc 35 g/dL (31-36); Mean Corpuscular Hemoglobin 32 pg (27-31); Mean Corpuscular Volume 92 fL (80-97); Mean Platelet Volume 7.3 fL (7.4-10.4); Platelet Count 280 10^3/uL (150-450); Red Blood Count 4.59 10^6 /uL (3.70-4.87); Red Cell Distribution Width 13 % (10-15); White Blood Count 13.2 10^3/uL (3.5-10.8)
[2021-08-27 00:05] LABS: ABS Lymphocytes 0.5 10^3/ul (1.0-4.8); ABS Monocytes 0.6 10^3/ul (0-0.8); Lymphocyte % 3.9 %; Nucleated Red Blood Cells % 0.1
[2021-08-27] MEDS: HYDROmorphone 1 MG/1 ML SYRINGE IV PRN ×5 (00:16→13:36)
[2021-08-27] MEDS ORDERED: Piperacillin/Tazobac ADVAN 3.375 GM in NS 0.9% 100 ml BAG 100 ML IV ONE (02:00)
[2021-08-27] MEDS ORDERED: Zosyn per Pharmacy NOTE FOLLOW UP SCH (02:00)
[2021-08-27] MEDS: NS 0.9% 1000 ml BAG 1,000 ML IV SCH ×2 (02:55→10:32)
[2021-08-27] MEDS: ZOSYN 3.375 GM Q8H per EXTENDED INFUSION IV SCH ×2 (07:55→18:03)
[2021-08-27] MEDS ORDERED: Iohexol 300 (CONTRAST) 10 ML SDV IV ONE (10:57)
[2021-08-27] MEDS ORDERED: Levofloxacin 500 MG IVPREMIX 500 MG/100 ML BAG IVPB SCH (13:00)
[2021-08-27] MEDS ORDERED: Buffered Lidocaine 1% SYRIN 1 ml INTRADERM ONE (13:40)
[2021-08-27] MEDS ORDERED: Lactated Ringers 1000 ml BAG 1,000 ML IV SCH (14:00)
[2021-08-27] MEDS ORDERED: Lidocaine 2% PF 5 ML VIAL ONE (14:30)
[2021-08-27] MEDS ORDERED: Propofol 10 MG/ML 20 ML BTL ONE (14:30)
[2021-08-27] MEDS ORDERED: Midazolam 2 mg/2 ml VIAL 1 mg/ml 2 ml VIAL (2 mg) ONE (14:30)
[2021-08-27] MEDS ORDERED: fentaNYL 100 mcg/2 ml 50 MCG/ML VIAL ONE ×3 (14:30→17:33)
[2021-08-27] MEDS ORDERED: Lidocaine 1% w EPI 1:100,000 MDV 20 ML VIAL ONE (14:34)
[2021-08-27] MEDS ORDERED: Lidocaine 1% VIAL 10 MG/ML VIAL ONE (14:34)
[2021-08-27] MEDS ORDERED: Famotidine IV 10 MG/ML 2 ml VIAL (20 mg) ONE (14:48)
[2021-08-27] MEDS ORDERED: Piperacillin/Tazobac 3.375 GM BAG ONE ×2 (14:55→14:56)
[2021-08-27] MEDS ORDERED: Rocuronium 50 mg VIAL 10 mg/ml 5 ml VIAL (50 mg) ONE (15:02)
[2021-08-27] MEDS ORDERED: Bupivacaine 0.25% w/EPI 10 ML SDV ONE (15:27)
[2021-08-27] MEDS ORDERED: Acetaminophen IV 1 GM/100ML 100 ML IV ONE (15:50)
[2021-08-27] MEDS ORDERED: Naloxone 0.4 mg VIAL 0.4 mg/ml 1 ml VIAL IV PUSH PRN (17:13)
[2021-08-27] MEDS ORDERED: DiMENhydriNATE IV 50 mg/ml 1 ml VIAL IV PUSH PRN (17:16)
[2021-08-27] MEDS ORDERED: Naloxone 0.4 mg VIAL 0.4 mg/ml 1 ml VIAL IV PRN (17:16)
[2021-08-27] MEDS ORDERED: Ondansetron 4 mg VIAL 2 MG/ML 2 ml VIAL IV PRN (17:16)
[2021-08-27] MEDS ORDERED: fentaNYL 100 mcg/2 ml 50 MCG/ML VIAL IV PRN (17:16)
[2021-08-27] MEDS ORDERED: fentaNYL 250 mcg/5 ml 50 MCG/ML 5 ml VIAL (250 MCG) ONE (17:31)
[2021-08-27] MEDS ORDERED: HYDROmorphone PCA 20 MG/20 ML PCA.SYRING PCA SCH (18:00)
[2021-08-28] MEDS: ZOSYN 3.375 GM Q8H per EXTENDED INFUSION IV SCH ×4 (00:23→23:04)
[2021-08-28] MEDS: oxyCODONE/Acetamin 5/325 mg TAB PO PRN ×3 (12:51→20:46)
[2021-08-28 13:56] LABS: INR 1.11 (0.86-1.15)
[2021-08-28 13:57] LABS: Activated Partial Thrombo Time 25.4 seconds (26.0-38.0)
[2021-08-28 14:19] LABS: eGFR CKD-EPI 122.3 (>60)
[2021-08-28] MEDS: Ondansetron ODT 4 mg TAB 4 MG TAB PO PRN (14:19)
[2021-08-28] MEDS: Heparin 5000 UNITS/ML 1 mL VIAL SUBCUT SCH ×2 (14:20→21:37)
[2021-08-28] MEDS ORDERED: HYDROmorphone 1 MG/1 ML SYRINGE IV SLOW PU ONE (21:15)
[2021-08-29] MEDS: oxyCODONE/Acetamin 5/325 mg TAB PO PRN (04:33)
[2021-08-29] MEDS ORDERED: HYDROmorphone 1 MG/1 ML SYRINGE IV ONE (05:30)
[2021-08-29] MEDS: Heparin 5000 UNITS/ML 1 mL VIAL SUBCUT SCH ×3 (05:36→22:18)
[2021-08-29 05:50] LABS: ABS Eosinophils 0.2 10^3/ul (0-0.6); ABS Lymphocytes 1.6 10^3/ul (1.0-4.8); ABS Monocytes 0.4 10^3/ul (0-0.8); ABS Neutrophils 4.9 10^3/ul (1.5-7.7); Eosinophil % 2.9 %; Hematocrit 31 % (35-47); Hemoglobin 10.7 g/dL (12.0-16.0); Lymphocyte % 22.4 %; Mean Corpuscular HGB Conc 35 g/dL (31-36); Mean Corpuscular Hemoglobin 32 pg (27-31); Mean Corpuscular Volume 93 fL (80-97); Mean Platelet Volume 7.3 fL (7.4-10.4); Nucleated Red Blood Cells % 0.1; Platelet Count 208 10^3/uL (150-450); Red Blood Count 3.29 10^6 /uL (3.70-4.87); Red Cell Distribution Width 13 % (10-15); White Blood Count 7.1 10^3/uL (3.5-10.8)
[2021-08-29] MEDS: ZOSYN 3.375 GM Q8H per EXTENDED INFUSION IV SCH ×3 (07:42→23:42)
[2021-08-29] MEDS: Acetaminophen IV 1 GM/100ML 100 ML IV PRN ×2 (09:57→20:49)
[2021-08-29] MEDS: HYDROmorphone 1 MG/1 ML SYRINGE IV SLOW PU PRN ×3 (09:57→18:53)
[2021-08-29] MEDS: Magnesium Hydroxide LIQ 30 ML UDC PO PRN ×2 (09:58→18:58)
[2021-08-29] MEDS: Ondansetron ODT 4 mg TAB 4 MG TAB PO PRN (13:33)
[2021-08-30] MEDS: Heparin 5000 UNITS/ML 1 mL VIAL SUBCUT SCH ×2 (06:26→13:48)
[2021-08-30] MEDS: HYDROmorphone 1 MG/1 ML SYRINGE IV SLOW PU PRN ×2 (06:32→10:44)
[2021-08-30 07:50] VITALS: BP 125/78
[2021-08-30] MEDS: Acetaminophen IV 1 GM/100ML 100 ML IV PRN (08:29)
[2021-08-30] MEDS ORDERED: Polyethylene Glycol 3350 17 GM PACKET PO PRN (09:06)
[2021-08-30] MEDS: Magnesium Hydroxide LIQ 30 ML UDC PO PRN ×2 (09:45→11:59)
[2021-08-30] MEDS: Lactulose 30 ml UDC PO ONE ×2 (09:45→10:44)
[2021-08-30] MEDS: Ondansetron ODT 4 mg TAB 4 MG TAB PO PRN (09:53)
[2021-08-30] MEDS ORDERED: diPHENhydraMINE IV 50 MG/ML 1 ml VIAL (BENADRYL) IV ONE (11:50)
[2021-08-30] MEDS: ZOSYN 3.375 GM Q8H per EXTENDED INFUSION IV SCH (15:23)
== END 2021-08-30 15:35 | disposition home or self-care (01) | DRG 222 ==
LOC: ED 10:42 → SSU 16:20 → OR 16:20
PROVIDERS: ADMIT Surgery; ATTEND Surgery